=== PATIENT | male | born 1935 | race Caucasian/White ===

== ENCOUNTER 2017-02-04 09:27 | Emergency (ER) | payer OTHER ==
[~2017-02-04] VITALS: Ht 175.3 cm; Wt 81.9 kg
[2017-02-04] MEDS ORDERED: ULTRAM50 MG PO (11:13)
[2017-02-04] MEDS ORDERED: NAPROSYN500 MG PO (11:13)
[2017-02-04 11:36] VITALS: BP 138/99
== END 2017-02-04 11:38 | disposition home or self-care (01) ==
LOC: EME 09:27
DX: S92.355A Nondisplaced fracture of fifth metatarsal bone, left foot, initial encounter for closed fracture (principal); W10.9XXA Fall (on) (from) unspecified stairs and steps, initial encounter; I10 Essential (primary) hypertension; E78.00 Pure hypercholesterolemia, unspecified; E03.9 Hypothyroidism, unspecified
CPT/HCPCS: 73630; 99281; 99283

== ENCOUNTER → 2018-05-17 | Outpatient (CLI) | payer OTHER ==
[~2018-05-17] VITALS: Ht 176.5 cm; Wt 80.7 kg
[~2018-05-17] MED LIST: ACID REDUCER 1150 MG PO; ALTACE10 MG PO; LO-DOSE ASPIRIN81 M2 PO; NAPROSYN500 MG PO; NORVASC10 MG PO; PRAVACHOL40 MG PO; SYNTHROID112 MCG PO; ULTRAM50 MG PO
== END | disposition home or self-care (01) ==
LOC: AMB 12:36
PROC: 0DB48ZX Excision of Esophagogastric Junction, Via Natural or Artificial Opening Endoscopic, Diagnostic (ICD-10-PCS; principal; 2018-05-17)
PROC: 0DB68ZX Excision of Stomach, Via Natural or Artificial Opening Endoscopic, Diagnostic (ICD-10-PCS; principal; 2018-05-17)
DX: K29.70 Gastritis, unspecified, without bleeding (principal); Z86.19 Personal history of other infectious and parasitic diseases; Z79.82 Long term (current) use of aspirin; K21.9 Gastro-esophageal reflux disease without esophagitis; I10 Essential (primary) hypertension; E78.00 Pure hypercholesterolemia, unspecified; Z87.891 Personal history of nicotine dependence; Z88.8 Allergy status to other drugs, medicaments and biological substances
CPT/HCPCS: 88305; 88342 TC; 93005